=== PATIENT | male | born 1995 | race African-American/Black ===

== ENCOUNTER 2017-04-23 22:31 | Emergency (ER) | payer OTHER ==
[2017-04-23 22:54] VITALS: BP 122/72
--- NOTE | 2017-04-24 00:06 | ER Document Report ---
ED GI/ - General Mode of Arrival: Ambulatory Information source: Patient, Parent - Father TRAVEL OUTSIDE OF THE [place] IN LAST 30 DAYS: No - HPI Patient complains to provider of: Vomiting Onset: Just prior to arrival - Refer to HPI notes Associated symptoms: Nausea, Vomiting <FRANCO MENDEZ - Last Filed: 04/24/17 01:57> <MARIA DEL ROSARIOJOLENEDARNELL - Last Filed: 04/24/17 03:26> - General Chief Complaint: Nausea/Vomiting Stated Complaint: VOMITING Time Seen by Provider: 04/24/17 00:05 Notes: Patient is a 21-year-old male presented emergency department after vomiting. Patient with his father brother and mother. Patient's mother was going to be examined for nausea, vomiting, and diarrhea with the patient also had an episode of nausea and vomiting. Patient vomited 1 here in the emergency department waiting room. Patient denies any abdominal pain or diarrhea. Patient states that he feels better after he vomited and feels fine to go home. Patient's primary care physician is at [place]. (FRANCO MENDEZ) - Related Data Allergies/Adverse Reactions: peanut Allergy (Verified 04/23/17 22:52) sulfamethoxazole [From Septra] Allergy (Verified 04/23/17 22:52) tree nut Allergy (Verified 04/23/17 22:52) trimethoprim [From Septra] Allergy (Verified 04/23/17 22:52) Past Medical History - General Information source: Patient - Social History Smoking Status: Never Smoker Cigarette use (# per day): No Chew tobacco use (# tins/day): No Smoking Education Provided: No Frequency of alcohol use: None Drug Abuse: None Family History: None Patient has suicidal ideation: No Patient has homicidal ideation: No - Medical History Medical History: Negative Surgical Hx: Negative <FRANCO MENDEZ - Last Filed: 04/24/17 01:57> Review of Systems - Review of Systems Constitutional: No symptoms reported EENT: No symptoms reported Cardiovascular: No symptoms reported Respiratory: No symptoms reported Gastrointestinal: See HPI, Nausea, Vomiting Genitourinary: No symptoms reported Male Genitourinary: No symptoms reported Musculoskeletal: No symptoms reported Skin: No symptoms reported Hematologic/Lymphatic: No symptoms reported Neurological/Psychological: No symptoms reported -: Yes All other systems reviewed and negative <FRANCO MENDEZ - Last Filed: 04/24/17 01:57> Physical Exam - Vital signs Interpretation: Normal <FRANCO MENDEZ - Last Filed: 04/24/17 01:57> <DARNELL MIX - Last Filed: 04/24/17 03:26> - Vital signs Vitals: Temp Pulse Resp BP Pulse Ox 98.6 F 57 L 16 122/72 100 04/23/17 22:52 04/23/17 22:52 04/23/17 22:52 04/23/17 22:52 04/23/17 22:52 - Notes Notes: GENERAL: Alert, interacts well. No acute distress. HEAD: Normocephalic, atraumatic. EYES: Appear normal. Pupils equal, round, and reactive to light. ENT: Moist mucus membranes, tongue midline. NECK: Full range of motion. Supple. Trachea midline. LUNGS: Clear to auscultation bilaterally, no wheezes, rales, or rhonchi. No respiratory distress. HEART: Regular rate and rhythm. No murmurs, gallops, or rubs. ABDOMEN: Soft, non-tender. Non-distended. Normal bowel sounds. EXTREMITIES: Moves all 4 extremities spontaneously. Normal strength. No edema. NEUROLOGICAL: Alert and oriented x3. Normal speech. No focal neurological deficits. GSC 15. PSYCH: Normal affect, normal mood. SKIN: Warm, dry, normal turgor. No rashes or lesions noted. (FRANCO MENDEZ) Course - Laboratory Result Diagrams: 04/23/17 23:50 04/23/17 23:50 <FRANCO MENDEZ - Last Filed: 04/24/17 01:57> - Laboratory Result Diagrams: 04/23/17 23:50 04/23/17 23:50 <DARNELL MIX - Last Filed: 04/24/17 03:26> - Re-evaluation Re-evalutation: 04/24/17 00:21 Patient presents emergency room with his father mother and brother 3 out of the 4 being seen after eating dinner earlier this evening and having vomiting. He had one episode of vomiting and is resolved now he complains of no medical problems is well-appearing nontoxic no acute abdominal findings is well- appearing and nontoxic. And will oral Zofran discharge him on Zofran oral hydration in 1-2 day follow primary care physician no emergent need for additional laboratory evaluation her IV fluids as he is currently not complaining of anything. (DARNELL MIX) - Vital Signs Vital signs: Temp Pulse Resp BP Pulse Ox 98.6 F 57 L 16 122/72 100 04/23/17 22:52 04/23/17 22:52 04/23/17 22:52 04/23/17 22:52 04/23/17 22:52 - Laboratory Laboratory results interpreted by me: 04/23/17 04/23/17 23:40 23:50 MCH 26.5 L Urine Ascorbic Acid 40 H Discharge <VANESSAYOCASTAFRANCO - Last Filed: 04/24/17 01:57> <DARNELL MIX - Last Filed: 04/24/17 03:26> - Discharge Clinical Impression: Vomiting Qualifiers: Vomiting type: unspecified Vomiting Intractability: unspecified Nausea presence : with nausea Qualified Code(s): R11.2 - Nausea with vomiting, unspecified Condition: Stable Disposition: HOME, SELF-CARE Instructions: Vomiting ([facility]) Additional Instructions: Vomiting Vomiting can be part of many illnesses. Most cases of vomiting are due to gastroenteritis, usually a viral infection in the intestinal tract. There is no specific treatment. The disease will end by itself. For now, the main danger to your child is dehydration. During the first few hours of the illness, give clear liquids, such as Pedialyte. Try to give small quantities frequently, such as a teaspoon of liquid every minute or about an ounce of fluids every five to ten minutes. Medications may be prescribed by the physician for special cases. After an hour or two of fluids without vomiting, add rice cereal, toast, applesauce, or bananas and other more solid foods to the clear liquids. Call the physician or go to the hospital if vomiting increases or blood appears in the bowel movement or vomitus; if your child fails to improve, or if signs of dehydration occur (no wet diapers for eight to twelve hours, tongue and mouth become dry, not acting as alert as usual). [place] return for increasing worsening or new symptoms Referrals: MERYL OROZCO PA [Primary Care Provider] - Follow up as needed Scribe Attestation: 04/24/17 00:23 I personally performed the services described in the documentation reviewed the documentation recorded by my scribe in my presence and it accurately and completely records my words and actions (DARNELL MIX) Scribe Documentation - Scribe Written by Edith:: Edith Lemos, 04/24/2017 2:00 acting as scribe for :: Maria Del Rosario <FRANCO MENDEZ - Last Filed: 04/24/17 01:57>
[2017-04-24] MEDS ORDERED: ONDANSETRON 4 MG TAB.RAPDIS PO ONE (00:14)
[2017-04-24 00:16] LABS: ABSOLUTE EOSINOPHILS # (AUTO) 0.2 10^3/uL (0.0-0.6); ABSOLUTE LYMPHOCYTES (AUTO) 1.6 10^3/uL (0.5-4.7); ABSOLUTE MONOCYTES (AUTO) 0.3 10^3/uL (0.1-1.4); ABSOLUTE NEUT (AUTO) 2.3 10^3/uL (1.7-8.2); EOSINOPHILS % (AUTO) 3.8 % (0-6); HEMATOCRIT 44.7 % (37.9-51.0); HEMOGLOBIN 14.7 g/dL (13.5-17.0); HGB HCT DIFFERENCE -0.6; LYMPHOCYTES % (AUTO) 36.4 % (13-45); MEAN CORPUSCULAR HEMOGLOBIN 26.5 pg (27.0-33.4); MEAN CORPUSCULAR HGB CONC 32.8 g/dL (32.0-36.0); MEAN CORPUSCULAR VOLUME 81 fl (80-97); MONOCYTES % (AUTO) 7.2 % (3-13); RED BLOOD COUNT 5.55 10^6/uL (4.35-5.55); RED CELL DISTRIBUTION WIDTH 13.9 % (11.5-14.0); SEGMENTED NEUTROPHILS % (AUTO) 51.6 % (42-78); WHITE BLOOD COUNT 4.5 10^3/uL (4.0-10.5)
[2017-04-24 00:17] LABS: APPEARANCE,URINE CLEAR; BILIRUBIN,URINE NEGATIVE (NEGATIVE); GLUCOSE, URINE NEGATIVE (NEGATIVE); KETONES,URINE NEGATIVE (NEGATIVE); LEUKOCYTE ESTERASE,URINE NEGATIVE (NEGATIVE); NITRITE,URINE NEGATIVE (NEGATIVE); PROTEIN,URINE NEGATIVE (NEGATIVE); URINE SPECIFIC GRAVITY 1.018; UROBILINOGEN,URINE NEGATIVE mg/dL (<2.0)
[2017-04-24] MEDS ORDERED: ONDANSETRON ODT 4 MG TAB (6 TAB/DSPK) PO PRN (00:23)
[2017-04-24 00:36] LABS: ALANINE AMINOTRANSFERASE 37 U/L (10-40); ALKALINE PHOSPHATASE 113 U/L (65-260); ANION GAP 14 (5-19); ASPARTATE AMINO TRANSFERASE 29 U/L (10-45); BILIRUBIN,DIRECT 0.4 mg/dL (0.0-0.4); BILIRUBIN,TOTAL 0.8 mg/dL (0.2-1.3); BLOOD UREA NITROGEN 12 mg/dL (7-20); CALCIUM 10.2 mg/dL (8.4-10.2); CARBON DIOXIDE 24 mmol/L (22-30); CHLORIDE 105 mmol/L (98-107); CREATININE RESULT 0.75 mg/dL (0.52-1.25); GLUCOSE 79 mg/dL (75-110); POTASSIUM 4.6 mmol/L (3.6-5.0)
== END 2017-04-24 01:24 | disposition home or self-care (01) ==
LOC: ER 22:31
DX: R11.2 Nausea with vomiting, unspecified (principal); R19.7 Diarrhea, unspecified
CPT/HCPCS: 99284; 36415; 85025; 80053; 81001; S0119

== ENCOUNTER 2019-10-31 18:47 | Emergency (ER) | payer SELFPAY ==
--- NOTE | 2019-10-31 18:55 | ER Document Report ---
ED Medical Screen (RME) - General Chief Complaint: Flank Pain Stated Complaint: RIGHT SIDE PAIN Time Seen by Provider: 10/31/19 18:52 Primary Care Provider: MERYL OROZCO PA [Primary Care Provider] - Follow up as needed Notes: 24-year-old male presents with right-sided abdominal pain that started earlier today. Patient states it is intermittent and is worse with certain positions. Patient denies any nausea/vomiting, diarrhea, constipation, fever, chills. Abdomen soft nontender. I have greeted and performed a rapid initial assessment of this patient. A comprehensive ED assessment and evaluation of the patient, analysis of test results and completion of the medical decision making process with be conducted by additional ED providers. TRAVEL OUTSIDE OF THE [place] IN LAST 30 DAYS: No - Related Data Allergies/Adverse Reactions: peanut Allergy (Verified 04/23/17 22:52) sulfamethoxazole [From Mayra] Allergy (Verified 04/23/17 22:52) tree nut Allergy (Verified 04/23/17 22:52) trimethoprim [From Mayra] Allergy (Verified 04/23/17 22:52) Past Medical History Renal/ Medical History: Denies: Hx Peritoneal Dialysis - Immunizations Hx Diphtheria, Pertussis, Tetanus Vaccination: No Physical Exam - Vital signs Vitals: Temp Pulse Resp BP Pulse Ox 98.4 F 74 16 149/79 H 98 10/31/19 18:52 10/31/19 18:52 10/31/19 18:52 10/31/19 18:52 10/31/19 18:52 Course - Vital Signs Vital signs: Temp Pulse Resp BP Pulse Ox 98.4 F 74 16 149/79 H 98 10/31/19 18:52 10/31/19 18:52 10/31/19 18:52 10/31/19 18:52 10/31/19 18:52 Doctor's Discharge - Discharge Referrals: MERYL OROZCO PA [Primary Care Provider] - Follow up as needed
[2019-10-31 19:23] LABS: ABSOLUTE EOSINOPHILS # (AUTO) 0.1 10^3/uL (0.0-0.6); ABSOLUTE LYMPHOCYTES (AUTO) 1.3 10^3/uL (0.5-4.7); ABSOLUTE MONOCYTES (AUTO) 0.3 10^3/uL (0.1-1.4); ABSOLUTE NEUT (AUTO) 1.9 10^3/uL (1.7-8.2); BASOPHILS % (AUTO) 0.8 % (0-2); EOSINOPHILS % (AUTO) 2.9 % (0-6); HEMATOCRIT 48.7 % (37.9-51.0); HEMOGLOBIN 16.1 g/dL (13.5-17.0); LYMPHOCYTES % (AUTO) 36.7 % (13-45); MEAN CORPUSCULAR HEMOGLOBIN 26.6 pg (27.0-33.4); MEAN CORPUSCULAR VOLUME 81 fl (80-97); MONOCYTES % (AUTO) 8.3 % (3-13); PLATELET COUNT 203 10^3/uL (150-450); RED BLOOD COUNT 6.05 10^6/uL (4.35-5.55); SEGMENTED NEUTROPHILS % (AUTO) 51.3 % (42-78); TOTAL CELLS COUNTED % (AUTO) 100 %; WHITE BLOOD COUNT 3.6 10^3/uL (4.0-10.5)
[2019-10-31 19:40] LABS: ALBUMIN 5.5 g/dL (3.5-5.0); ALKALINE PHOSPHATASE 100 U/L (38-126); ANION GAP 13 (5-19); ASPARTATE AMINO TRANSFERASE 28 U/L (17-59); BILIRUBIN,DIRECT 0.2 mg/dL (0.0-0.4); BILIRUBIN,TOTAL 0.6 mg/dL (0.2-1.3); BLOOD UREA NITROGEN 11 mg/dL (7-20); CALCIUM 10.5 mg/dL (8.4-10.2); CARBON DIOXIDE 29 mmol/L (22-30); CHLORIDE 100 mmol/L (98-107); GLUCOSE 88 mg/dL (75-110); POTASSIUM 4.1 mmol/L (3.6-5.0)
[2019-10-31 19:42] LABS: APPEARANCE,URINE CLEAR; BILIRUBIN,URINE NEGATIVE (NEGATIVE); COLOR,URINE STRAW; GLUCOSE, URINE NEGATIVE (NEGATIVE); KETONES,URINE NEGATIVE (NEGATIVE); PROTEIN,URINE NEGATIVE (NEGATIVE); URINE SPECIFIC GRAVITY 1.011; UROBILINOGEN,URINE NEGATIVE mg/dL (<2.0)
--- NOTE | 2019-10-31 19:54 | ER Document Report ---
ED General - General Chief Complaint: Abdominal Pain Stated Complaint: RIGHT SIDE PAIN Time Seen by Provider: 10/31/19 18:52 Primary Care Provider: MERYL OROZCO PA [Primary Care Provider] - Follow up in 3-5 days Notes: 24-year-old male presents emergency department with complaints of right-sided abdominal pain that started today. Reports he did not wake up with the pain he just started noticing it later on in the morning. Denies fever vomiting diarrhea. He reports he is eating drinking voiding bowel movement as normal. Reports last bowel movement was today. Denies injury. Reports the pain comes and goes mostly with different positions. Denies pain with walking. TRAVEL OUTSIDE OF THE [place] IN LAST 30 DAYS: No - HPI Onset: This morning Onset/Duration: Sudden Quality of pain: Achy Associated symptoms: None Exacerbated by: Other - different positions Relieved by: Denies Similar symptoms previously: No Recently seen / treated by doctor: No - Related Data Allergies/Adverse Reactions: peanut Allergy (Verified 04/23/17 22:52) sulfamethoxazole [From Mayra] Allergy (Verified 04/23/17 22:52) tree nut Allergy (Verified 04/23/17 22:52) trimethoprim [From Mayra] Allergy (Verified 04/23/17 22:52) Past Medical History - General Information source: Patient - Social History Smoking Status: Never Smoker Cigarette use (# per day): No Frequency of alcohol use: None Drug Abuse: None Occupation: none Lives with: Family Family History: None Patient has suicidal ideation: No Patient has homicidal ideation: No Pulmonary Medical History: Reports: Hx Asthma Renal/ Medical History: Denies: Hx Peritoneal Dialysis Past Surgical History: Reports: Hx Inguinal Hernia, Hx Tonsillectomy - Immunizations Hx Diphtheria, Pertussis, Tetanus Vaccination: No Review of Systems - Review of Systems Notes: Review HPI for review of systems., All other systems negative Physical Exam - Vital signs Vitals: Temp Pulse Resp BP Pulse Ox 98.4 F 74 16 149/79 H 98 10/31/19 18:52 10/31/19 18:52 10/31/19 18:52 10/31/19 18:52 10/31/19 18:52 - General General appearance: Appears well, Alert In distress: None - HEENT Head: Normocephalic Eyes: Normal Conjunctiva: Normal Extraocular movements intact: Yes Neck: Normal, Supple. No: Lymphadenopathy - Respiratory Respiratory status: No respiratory distress Chest status: Nontender Breath sounds: Normal Chest palpation: Normal - Cardiovascular Rhythm: Regular Heart sounds: Normal auscultation, S1 appreciated, S2 appreciated Murmur: No - Abdominal Inspection: Normal Distension: No distension Bowel sounds: Normal Tenderness: Nontender - Patient denies pain with palpation. Reports right-sided abdominal pain with certain positions only. Organomegaly: No organomegaly Adult front & back diagram: 1 - Patient reports pain with certain positions only. - Back Back: Normal, Nontender. No: CVA tenderness - Extremities General upper extremity: Normal ROM, Normal strength General lower extremity: Normal ROM, Normal strength, Normal weight bearing - Neurological Neuro grossly intact: Yes Cognition: Normal Orientation: AAOx4 Alize Coma Scale Eye Opening: Spontaneous Alize Coma Scale Verbal: Oriented Alize Coma Scale Motor: Obeys Commands [place] Coma Scale Total: 15 Speech: Normal Cerebellar coordination: Normal - Psychological Associated symptoms: Normal affect, Normal mood - Skin Skin Temperature: Warm Skin Moisture: Dry Skin Color: Normal Course - Re-evaluation Re-evalutation: 10/31/19 20:04 Patient presents with complaints of right-sided abdominal pain that started sometime this morning. Denies pain with eating. Reports pain occurs with certain positions. Denies pain with ambulating. No pain with palpation to his abdomen. Denies fever vomiting diarrhea. Patient looks good, labs unrem arkable, denies fever vomiting diarrhea.. He was instructed on possible reasons for abdominal pain such as his gas, gallbladder or appendix. He was instructed to monitor his symptoms, follow-up with his primary care provider within 1 week or return here for worsening symptoms. He verbalized understanding to all instructions and so did his mother. Laboratory 10/31/19 10/31/19 10/31/19 19:08 19:08 19:08 WBC 3.6 L RBC 6.05 H Hgb 16.1 Hct 48.7 MCV 81 MCH 26.6 L MCHC 33.0 RDW 14.0 Plt Count 203 Lymph % (Auto) 36.7 [place] % (Auto) 8.3 Eos % (Auto) 2.9 Baso % (Auto) 0.8 Absolute Neuts (auto) 1.9 Absolute Lymphs (auto) 1.3 Absolute Monos (auto) 0.3 Absolute Eos (auto) 0.1 Absolute Basos (auto) 0.0 Seg Neutrophils % 51.3 Sodium 141.5 Potassium 4.1 Chloride 100 Carbon Dioxide 29 Anion Gap 13 BUN 11 Creatinine 0.67 Est GFR ( Amer) > 60 Est GFR (MDRD) Non-Af > 60 Glucose 88 Calcium 10.5 H Total Bilirubin 0.6 Direct Bilirubin 0.2 Neonat Total Bilirubin Not Reportable Neonat Direct Bilirubin Not Reportable Neonat Indirect Bili Not Reportable AST 28 ALT 19 Alkaline Phosphatase 100 Total Protein 9.0 H Albumin 5.5 H Lipase 69.1 Urine Color STRAW Urine Appearance CLEAR Urine pH 8.0 Ur Specific [place] 1.011 Urine Protein NEGATIVE Urine Glucose (UA) NEGATIVE Urine Ketones NEGATIVE Urine Blood NEGATIVE Urine Nitrite (Reflex) NEGATIVE Urine Bilirubin NEGATIVE Urine Urobilinogen NEGATIVE Leukocyte Esterase Rfl NEGATIVE Urine RBC (Auto) 0 Urine WBC (Reflex) < 1 Squamous Epi Cells Auto <1 Urine Mucus (Auto) RARE Urine Ascorbic Acid NEGATIVE - Vital Signs Vital signs: Temp Pulse Resp BP Pulse Ox 98.4 F 74 16 149/79 H 98 10/31/19 18:52 10/31/19 18:52 10/31/19 18:52 10/31/19 18:52 10/31/19 18:52 - Laboratory Result Diagrams: 10/31/19 19:08 10/31/19 19:08 Laboratory results interpreted by me: 10/31/19 10/31/19 19:08 19:08 WBC 3.6 L RBC 6.05 H MCH 26.6 L Calcium 10.5 H Total Protein 9.0 H Albumin 5.5 H Discharge - Discharge Clinical Impression: Abdominal pain Qualifiers: Abdominal location: right lower quadrant Qualified Code(s): R10.31 - Right lower quadrant pain Condition: Stable Disposition: HOME, SELF-CARE Instructions: Abdominal Pain ([facility]), Observation for Appendicitis ([facility]) Additional Instructions: *You have been evaluated for abdominal pain *Follow up with a primary care provider within 1 week for recheck *Return to ED for worsening condition, changes, needs, increased pain, vomiting *Return to ED if not better in 24 hours Monitor your blood pressure. Your blood pressure was elevated today. This may be because you were anxious, in pain or because you need medication. It is important to follow up with your primary care provider for full evaluation. Forms: Elevated Blood Pressure Referrals: MERYL OROZCO PA [Primary Care Provider] - Follow up in 3-5 days
[2019-10-31 20:35] VITALS: BP 126/67
== END 2019-10-31 20:36 | disposition home or self-care (01) ==
LOC: ER 18:47
DX: R10.31 Right lower quadrant pain (principal); Z88.3 Allergy status to other anti-infective agents; Z91.018 Allergy to other foods; Z91.010 Allergy to peanuts
CPT/HCPCS: 36415; 80053; 81001; 83690; 85025; 99284